=== PATIENT | female | born 1995 | race Caucasian/White ===

== ENCOUNTER 2017-12-06 00:32 | Emergency (ER) | payer SELFPAY ==
[~2017-12-06] VITALS: Ht 185.4 cm; Wt 72.6 kg
[2017-12-06 00:35] VITALS: BP 129/70
--- NOTE | 2017-12-06 01:10 | NUR ---
XRAY AT BEDSIDE.
[2017-12-06] MEDS ORDERED: IBUPROFEN 400 MG TABLET PO ONE (01:30)
--- NOTE | 2017-12-06 02:21 | NUR ---
OZZY BANDAGE APPLIED TO L KNEE PER MD ORDER.
== END 2017-12-06 02:23 | disposition home or self-care (01) ==
LOC: ER 00:34
DX: S80.02XA Contusion of left knee, initial encounter (principal); V49.59XA Passenger injured in collision with other motor vehicles in traffic accident, initial encounter; Y93.89 Activity, other specified; Y92.89 Other specified places as the place of occurrence of the external cause; Y99.8 Other external cause status
CPT/HCPCS: 73564; 99284; A4606; Z7610